=== PATIENT | female | born 1980 | race Caucasian/White ===

== ENCOUNTER → 2021-12-06 | Outpatient (CLI) | payer BC | LOC: MC.RAD 11:15 | DX: Z12.31 Encounter for screening mammogram for malignant neoplasm of breast (principal); N63.11 Unspecified lump in the right breast, upper outer quadrant ==

== ENCOUNTER → 2021-12-12 | Outpatient (CLI) | payer BC | LOC: MC.RAD 06:58 | DX: N60.01 Solitary cyst of right breast (principal) ==

== ENCOUNTER → 2023-06-23 | Outpatient (CLI) | payer BC | LOC: COL.RAD 12:01 | DX: R10.31 Right lower quadrant pain (principal) ==